=== PATIENT | male | born 1970 | race Caucasian/White ===

== ENCOUNTER 2024-09-22 22:30 | Emergency (ER) | payer OTHER ==
[2024-09-22] MEDS: methylPREDNISolone Sodium Succinate 125 MG/2 ML SDV IVPUSH ONE (22:55)
[2024-09-22] MEDS: Albuterol 0.083% 2.5 MG/3 ML Neb Soln NEB ONE (22:55)
[2024-09-22] MEDS: Budesonide 0.5 MG/2 ML Neb Susp NEB ONE (23:05)
== END 2024-09-22 23:35 | disposition home or self-care (01) ==
LOC: LB.ED 22:30
DX: J45.41 Moderate persistent asthma with (acute) exacerbation (principal); Z79.899 Other long term (current) drug therapy; Z79.51 Long term (current) use of inhaled steroids
CPT/HCPCS: 94640; 96374; 99283-25; 99284; A9270-GY; J2919; J7512